=== PATIENT | male | born 1995 | race Two or more races ===

== ENCOUNTER 2023-12-28 03:55 | Emergency (ER) | payer OTHER ==
[~2023-12-28] VITALS: Ht 182.9 cm; Wt 81.6 kg
[2023-12-28 04:03] VITALS: BP 145/82; PULSE 98; RESP 16; TEMP 97.1; O2SAT 100
[2023-12-28 04:19] VITALS: BP 145/82; PULSE 98; RESP 16; TEMP 97.1; O2SAT 100
== END 2023-12-28 04:19 ==
LOC: MED 03:55
DX: Z02.89 Encounter for other administrative examinations (principal); V49.88XA Car occupant (driver) (passenger) injured in other specified transport accidents, initial encounter; Y93.89 Activity, other specified; Y92.89 Other specified places as the place of occurrence of the external cause; Y99.8 Other external cause status
CPT/HCPCS: 99283